=== PATIENT | female | born 1970 | race Caucasian/White ===

== ENCOUNTER 2018-05-03 13:46 | Outpatient (CLI) | payer OTHER ==
[~2018-05-03] VITALS: Ht 170.2 cm; Wt 84.0 kg
[2018-05-03] VITALS (10 sets, daily range): BP systolic 113–137; BP diastolic 56–80; PULSE 68–87; TEMP 98.2–98.7
[~2018-05-03 13:46] MED LIST: ADDERALL XR30 MG PO; MULTIPLE VITAMI1 CAP PO
[2018-05-03] MEDS ORDERED: TOPROL XL 25MG25 MG PO (14:30)
[2018-05-03] MEDS ORDERED: HCTZ 25MG TAB25 MG PO (14:31)
[2018-05-03] MEDS ORDERED: NORETHINDRONE AC5 MG PO (14:33)
[2018-05-03] MEDS ORDERED: PLAQUENIL 200M200 MG PO (14:34)
[2018-05-03] MEDS ORDERED: VALTREX 50500 MG/TAB PO (14:36)
== END 2018-05-03 20:06 | disposition home or self-care (01) ==
LOC: EUO 13:46
DX: D50.9 Iron deficiency anemia, unspecified (principal); Z79.899 Other long term (current) drug therapy
CPT/HCPCS: J7050; P9016

== ENCOUNTER → 2018-05-16 | Outpatient (REF) ==
[~2018-05-16] MED LIST changes: +HCTZ 25MG TAB25 MG PO; +NORETHINDRONE AC5 MG PO; +PLAQUENIL 200M200 MG PO; +TOPROL XL 25MG25 MG PO; +VALTREX 50500 MG/TAB PO
[2018-05-16 07:42] LABS: BASO # 0.1 (0.0-0.2); BASO % 0.9 % (0.0-2.0); EOS # 0.2 (0.0-0.7); EOS % 1.5 % (0-4.0); GRAN # 8.8 (1.4-6.5); GRAN % 70.7 % (42.2-75.2); HEMATOCRIT 38.5 % (37.0-47.0); HEMOGLOBIN 11.8 g/dl (12.5-16.0); LYMPH # 2.3 (1.2-3.4); LYMPH % 18.6 % (20.0-51.0); MEAN CELL VOLUME 84 fl (80.0-100.0); MEAN CORPUSCULAR HEMOGLOBIN 26 pg (27.0-31.0); MEAN CORPUSCULAR HGB CONC 31 g/dl (33.0-37.0); MEAN PLATELET VOLUME 10.8 fl (7.4-10.4); PLATELET COUNT 677 K/mm3 (130-400); RED BLOOD COUNT 4.58 M/mm3 (4.10-5.30); REDCELL DISTRIBUTION WIDTH-CV 19.8 % (11.5-14.5)
== END ==
LOC: ZMSC 07:28
PROVIDERS: Obstetrics & Gynecology
DX: Z01.89 Encounter for other specified special examinations (principal)